=== PATIENT | female | born 1960 | race Two or more races ===

== ENCOUNTER 2018-03-07 22:08 | Emergency (ER) | payer OTHER ==
[~2018-03-07] VITALS: Ht 162.6 cm; Wt 98.0 kg
[2018-03-07 23:11] VITALS: BP 148/84
--- NOTE | 2018-03-07 23:23 | Emergency Room Report ---
History of Present Illness General Chief Complaint: General Complaint Source: Patient, EMS Present Illness HPI Is a pleasant 57-year-old female with multiple medical problems. She presents with chief complaint of bleeding to her left ankle. She has varicose me and was scratching her leg when he start bleeding. No other injury. Never had this problem before. No other trauma. No pain. Allergies: Coded Allergies: No Known Allergies (Unverified , 03/07/18) Patient History Past Medical History: see triage record, old chart reviewed, HTN, CAD Past Surgical History: other Pertinent Family History: none Social History: Denies: smoking Last Menstrual Period: n/a Now: No Immunizations: other Reviewed Nursing Documentation: PMH: Agreed; PSxH: Agreed Nursing Documentation-PMH Past Medical History: No History, Except For Hx Cardiac Problems: Yes - high cholesterol Hx Hypertension: Yes Hx Diabetes: Yes Review of Systems Eye: Denies: eye pain, blurred vision ENT: Denies: ear pain, nose congestion, throat swelling Respiratory: Denies: cough, shortness of breath Cardiovascular: Denies: chest pain, palpitations Gastrointestinal: Denies: abdominal pain, diarrhea, nausea, vomiting Musculoskeletal: Denies: back pain, joint pain Skin: Denies: rash Neurological: Denies: headache, numbness Endocrine: Denies: increased thirst, increased urine Hematologic/Lymphatic: Denies: easy bruising All Other Systems: negative except mentioned in HPI Physical Exam Vital Signs Date Time Temp Pulse Resp B/P (MAP) Pulse Ox O2 Delivery O2 Flow Rate FiO2 03/07/18 22:24 98.1 98 16 148/84 99 Room Air 98.1 vitals normal Sp02 EP Interpretation: reviewed, normal General Appearance: well appearing, no apparent distress, alert Head: normocephalic, atraumatic Eyes: bilateral eye PERRL, bilateral eye EOMI ENT: hearing grossly normal, normal pharynx Neck: full range of motion, supple, no meningismus Respiratory: chest non-tender, lungs clear, normal breath sounds Cardiovascular #1: regular rate, rhythm, no murmur Gastrointestinal: normal bowel sounds, non tender, no mass, no organomegaly, no bruit, non-distended Musculoskeletal: back normal, gait/station normal, normal range of motion, other - Left leg: On the lateral aspect of the tibia distally just above the ankle, there is a small area of bleeding where she scratched her skin. This is right over the varicose vein. No other injury. Neurologic: alert, oriented x3 Psychiatric: mood/affect normal Skin: warm/dry Procedures Laceration/Wound Repair Laceration/Wound Repair : Consent: Verbal Wound Location: lower extremity Wound's Depth, Shape: superficial Wound Length (cm): 1 Wound Explored: clean Irrigated w/ Saline (ccs): 500 Betadine Prep?: Yes Anesthesia: Lidocaine w/ Epi Volume Anesthetic (ccs): 1 Wound Repaired With: sutures Suture Size/Type: 3:0, other - Vicryl Number of Sutures: 2 Patient Tolerated: Well Complications: None Progress I placed to cross suture over the wound. Afterward I placed Surgicel over it. Wound with then dressed. Patient tolerated procedure without a problem. No more bleeding. Medical Decision Making Diagnostic Impression: Primary Impression: Bleeding from varicose veins of lower extremity Qualified Codes: I83.892 - Varicose veins of left lower extremity with other complications ER Course Patient with bleeding from her varicose vein. No other injury. No infection. Last Vital Signs Date Time Temp Pulse Resp B/P (MAP) Pulse Ox O2 Delivery O2 Flow Rate FiO2 03/07/18 23:11 98.1 84 16 148/84 99 Room Air 98.1 Status: improved Disposition: HOME, SELF-CARE Condition: Stable Additional Instructions: Hold pressure if bleeding. Keep wound clean. Suture will fall off. Follow-up your doctor in 7 days. Return if worse. CHICHO OSPINA M.D. Mar 07, 2018 23:23
[2018-03-07 23:39] VITALS: BP 148/84
== END 2018-03-07 23:40 | disposition home or self-care (01) ==
LOC: EDBD 22:08 → EMR 22:56
DX: I83.892 Varicose veins of left lower extremity with other complications (principal)
CPT/HCPCS: 37785; 99282; Z7502